=== PATIENT | male | born 1940 | race Caucasian/White ===

== ENCOUNTER 2016-12-04 08:39 | Emergency (ER) | payer MEDICARE ==
[2016-12-04 08:40] VITALS: BMI 27.1
[2016-12-04 08:43] VITALS: RESP 18; TEMP 97.5
[2016-12-04] MEDS ORDERED: DiphenhydrAMINE 50 mg/ml Inj ONE (08:55)
[2016-12-04] MEDS ORDERED: MethylPREDNISolone 40 mg Vial ONE (08:55)
--- NOTE | 2016-12-04 08:56 | C.PDOC ---
History Of Present Illness 76 yr old male presents to the ER for evaluation of new onset of angioedema to the right mouth and lower face since morning. Patient reports he takes unknown HTN medication. Denies history of asthma, chest pain, SOB, difficulty swallowing , tongue swelling or neck pain. Time Seen by Provider: 12/04/16 08:53 Chief Complaint (Nursing): Allergic Reaction History Per: Patient History/Exam Limitations: no limitations Onset/Duration Of Symptoms: Sudden Onset (Since morning ) Current Symptoms Are (Timing): Still Present Past Medical History Reviewed: Historical Data, Nursing Documentation, Vital Signs Vital Signs: Last Vital Signs Temp 97.5 F L 12/04/16 08:42 Pulse 73 12/04/16 08:42 Resp 18 12/04/16 08:42 BP 183/98 H 12/04/16 08:42 Pulse Ox 97 12/04/16 08:59 - Medical History PMH: Benign Prostatic Hyperplasia, HTN - [facility] Procedures DX ULTRASOUND NEC (02/22/13) PERCUTAN NEEDLE BIOPSY OF PROSTATE (02/22/13) Family History: States: No Known Family Hx - Social History Hx Alcohol Use: No Hx Substance Use: No - Immunization History Hx Tetanus Toxoid Vaccination: No Hx Influenza Vaccination: No Hx Pneumococcal Vaccination: No Review Of Systems Except As Marked, All Systems Reviewed And Found Negative. ENT: Positive for: Mouth Swelling (Right ), Other ((+) Lower face swelling) Cardiovascular: Negative for: Chest Pain Respiratory: Negative for: Shortness of Breath Musculoskeletal: Negative for: Neck Pain Physical Exam - Physical Exam Appears: Non-toxic, No Acute Distress Skin: Warm, Dry, Other ((+) Moderate angioedema, non pitting to the right lower face.) Head: Atraumatic, Normacephalic Oral Mucosa: Moist, No Drooling, No Trismus Lips: Swelling (Moderate angioedema to upper and lower lip. ) Throat: Normal, No Erythema, No Exudate, No Drooling Neck: Normal, Normal ROM, Supple Chest: Symmetrical, No Tenderness Cardiovascular: Rhythm Regular, No Murmur Respiratory: Normal Breath Sounds, No Rales, No Rhonchi, No Wheezing Extremity: Normal ROM, No Swelling Neurological/Psych: Oriented x3, Normal Speech, Normal Motor ED Course And Treatment O2 Sat by Pulse Oximetry: 97 (RA) Pulse Ox Interpretation: Normal Reevaluation Time: 10:17 Reassessment Condition: Improved (SWELLING IMPROVED. NARD PS FEELS BETTER. VSS. FAMILY STATES PT ON LISINOPRIL. ADVISED TO IMMEDIATELY DC MED. HAS PMD APPT TOMORROW.) Disposition Counseled Patient/Family Regarding: Studies Performed, Diagnosis, Need For Followup, Rx Given - Disposition Referrals: [facility] [Outside] [facility] [Outside] YOUR,PMD [Other] Disposition: HOME/ ROUTINE Disposition Time: 10:18 Condition: IMPROVED Additional Instructions: IMMEDIATELY STOP LISINOPRIL. SEE YOUR PMD TOMORROW SCHEDULED. RETURN IF WORSENING SYMPTOMS Prescriptions: amLODIPine [Norvasc] 5 mg PO DAILY #7 tab predniSONE [Prednisone] 60 mg PO DAILY #12 tab Instructions: Angioedema (ED) Forms: [employer] (Macedonian) Print Language: HONG KONGER - Clinical Impression Clinical Impression: Angioedema, Adverse reaction to ANNE inhibitor drug - Scribe Statement The provider has reviewed the documentation as recorded by the Augie Mayberry Provider Attestation: All medical record entries made by the Augie were at my direction and personally dictated by me. I have reviewed the chart and agree that the record accurately reflects my personal performance of the history, physical exam, medical decision making, and the department course for this patient. I have also personally directed, reviewed, and agree with the discharge instructions and disposition.
[2016-12-04] MEDS ORDERED: DiphenhydrAMINE 50 mg/ml Inj IVP STA (09:30)
[2016-12-04] MEDS ORDERED: MethylPREDNISolone 40 mg Vial IVP STA (09:30)
[2016-12-04 10:39] VITALS: BP 144/93; PULSE 66; O2SAT 100
== END 2016-12-04 10:42 | disposition home or self-care (01) ==
LOC: C.ER 08:39
DX: T78.3XXA Angioneurotic edema, initial encounter (principal); T46.4X5A Adverse effect of angiotensin-converting-enzyme inhibitors, initial encounter
CPT/HCPCS: 96374; 96375; 99284; J1200; J2920

== ENCOUNTER 2018-09-24 17:50 | Emergency (ER) | payer MEDICARE, MEDICAID ==
[2018-09-24 17:50] VITALS: BMI 27.1
[2018-09-24] MEDS ORDERED: Tdap Vaccine 0.5 ml Vial (10-64 yrs) IM ONE ×2 (18:39→18:45)
--- NOTE | 2018-09-24 19:30 | C.PDOC ---
History Of Present Illness 78 year old male presents to ED with complaint of pain and swelling to the left ring finger. Patient states that he slammed his finger in the garage door. Patient's last tetanus is not up to date. He denies weakness, numbness, fever, or discharge. Time Seen by Provider: 09/24/18 18:11 Chief Complaint (Nursing): Upper Extremity Problem/Injury History Per: Patient History/Exam Limitations: no limitations Onset/Duration Of Symptoms: Hrs (2) Current Symptoms Are (Timing): Still Present Quality: "Pain" Past Medical History Reviewed: Historical Data, Nursing Documentation, Vital Signs Vital Signs: Last Vital Signs Temp 97.3 F L 09/24/18 18:00 Pulse 87 09/24/18 18:00 Resp 16 09/24/18 18:00 BP 196/100 H 09/24/18 18:00 Pulse Ox 98 09/24/18 18:00 Primary Care Provider: Castro Lucero - Medical History PMH: Benign Prostatic Hyperplasia, HTN Surgical History: No Surg Hx - [facility] Procedures DX ULTRASOUND NEC (02/22/13) PERCUTAN NEEDLE BIOPSY OF PROSTATE (02/22/13) Family History: States: Unknown Family Hx - Social History Hx Alcohol Use: No Hx Substance Use: No - Immunization History Hx Tetanus Toxoid Vaccination: No Hx Influenza Vaccination: No Hx Pneumococcal Vaccination: No Review Of Systems Constitutional: Negative for: Fever, Chills, Weakness Musculoskeletal: Positive for: Hand Pain (left ring finger pain and swelling) Neurological: Negative for: Weakness, Numbness Physical Exam - Physical Exam Appears: Non-toxic, No Acute Distress Skin: Normal Color, Warm, Dry Head: Atraumatic, Normacephalic Extremity: Capillary Refill (<2 seconds), Swelling (distal end of the tip of the fourth finger ), Other (laceration to the medial aspect and horizontal aspect of the left ring finger; neurovascular intact ) Pulses: Left Radial: Normal, Right Radial: Normal Neurological/Psych: Oriented x3, Normal Speech, Normal Cognition, Normal Motor, Normal Sensation ED Course And Treatment O2 Sat by Pulse Oximetry: 98 (in RA) Pulse Ox Interpretation: Normal Medical Decision Making Medical Decision Making: Impression: 78 year old male presents to ED with complaint of pain and swelling to the left ring finger. Initial Plan: * Left Hand X-ray * Tetanus vaccine * Ancef IVPB * Tylenol PO pt with comminuted fracture to dital phalanx left 4th finger. discussed with Dr Ortiz, recommends no closure. xeroform dressing. f/u in office, antibiotics Disposition Discussed With Dr.: Norm Ortiz Doctor Will See Patient In The: Office Counseled Patient/Family Regarding: Studies Performed, Diagnosis, Need For Followup, Rx Given - Disposition Referrals: Norm Ortiz MD [Staff Provider] - Disposition: HOME/ ROUTINE Disposition Time: 20:11 Condition: GOOD Additional Instructions: Sigue vistindote con el dedo. Llame al Dr. Angel goodman para hacer la doris ms pronto para el seguimiento. Tylenol para el dolor. Marylu antibitico hasta completar. Keep dressing on finger. Call Dr Ortiz tomorrow to make soonest appointment for follow up. Tylenol for pain. Take antibiotic until completed. Prescriptions: Acetaminophen [Tylenol 325mg tab] 650 mg PO Q4 #50 tab Cephalexin [cephalexin] 500 mg PO Q6 #28 cap Instructions: Finger Fracture (DC) Forms: Gen Discharge Inst Bermudian, [facility] (Bermudian) - Clinical Impression Clinical Impression: Open fracture of finger, distal phalanx - PA / DIGITAL CARTOGRAPHIC TECHNICIAN / Resident Statement MD/DO has reviewed & agrees with the documentation as recorded. (Steph Mercedes) - Scribe Statement The provider has reviewed the documentation as recorded by the Scribe (Steph Mercedes) All medical record entries made by the Scribe were at my direction and personally dictated by me. I have reviewed the chart and agree that the record accurately reflects my personal performance of the history, physical exam, medic al decision making, and the department course for this patient. I have also personally directed, reviewed, and agree with the discharge instructions and disposition.
[2018-09-24] MEDS ORDERED: ceFAZolin 1 gm in NS 1 GM/100 ML BAG IVPB ONE (19:32)
[2018-09-24 20:26] VITALS: BP 165/90; PULSE 68; RESP 18; TEMP 98
--- NOTE | 2018-09-25 09:23 | RAD ---
PROCEDURE: Left Hand Radiographs. HISTORY: crush injury 4th finger COMPARISON: None. TECHNIQUE: 3 views obtained. FINDINGS: BONES: Comminuted fracture noted of the distal 4th phalangeal tuft. JOINTS: No dislocation seen. Joint space narrowing noted at the 5th DIP joint.. SOFT TISSUES: Soft tissue swelling noted adjacent to the fracture site OTHER FINDINGS: None. IMPRESSION: Comminuted fracture noted of the distal 4th phalangeal tuft.
[2018-09-27 06:21] VITALS: O2SAT 98
== END 2018-09-24 20:39 | disposition home or self-care (01) ==
LOC: C.ER 17:50
DX: S62.635B Displaced fracture of distal phalanx of left ring finger, initial encounter for open fracture (principal); W23.0XXA Caught, crushed, jammed, or pinched between moving objects, initial encounter
CPT/HCPCS: 73130; 90471; 90715; 96365; 99283; J0690